=== PATIENT | female | born 1985 | race Asian ===

== ENCOUNTER 2017-10-07 07:20 | Inpatient (IN) | payer OTHER ==
[2017-10-07] MEDS ORDERED: 0.9 % SODIUM CHLORIDE 10 ML DISP.SYRIN. IV ×2 (08:15→11:00)
[2017-10-07] MEDS ORDERED: LIDOCAINE 1% PF 30 ML VIAL. INJ (08:15)
[2017-10-07] MEDS ORDERED: TERBUTALINE 1 MG/ML VIAL. SQ (08:15)
[2017-10-07 08:35] LABS: ADD MAN DIFF? NO
[2017-10-07 08:38] LABS: BASO % 0 % (0-3); EOS # 0.1 x10^3/uL (0.0-0.7); EOS % 1 % (0-3); HEMATOCRIT 36.6 % (36.0-47.0); LYMPH # 2.2 x10^3/uL (1.0-4.8); LYMPH % 27 % (24-48); MEAN CORPUSCULAR HEMOGLOBIN 27 pg (25-35); MEAN CORPUSCULAR HGB CONC 33 g/dL (31-37); MEAN CORPUSCULAR VOLUME 82 fL (79-100); MONO # 0.7 x10^3/uL (0.0-1.1); MONO % 9 % (0-9); NEUT # 5.1 x10^3uL (1.8-7.7); NEUT % 62 % (31-73); PLATELET COUNT 151 x10^3/uL (140-400); RED BLOOD COUNT 4.46 x10^6/uL (3.50-5.40); RED CELL DISTRIBUTION WIDTH 15.2 % (11.5-14.5); WHITE BLOOD COUNT 8.2 x10^3/uL (4.0-11.0)
[2017-10-07] MEDS: IV RINGERS,LACTATED 1000ML 1,000 ML IV ×2 (09:00→17:00)
[2017-10-07] MEDS: fentaNYL PF VIAL 100 MCG/2 ML VIAL IV ×3 (09:45→15:51)
[2017-10-07] MEDS: OXYTOCIN 30 UNIT/500 ML PREMIX 500 ML IV ×3 (09:46→15:42)
[2017-10-07] MEDS ORDERED: HYDROCORTISONE 1% TOPICAL OINTMENT 30GM TUBE. TP (11:00)
[2017-10-07] MEDS ORDERED: diphenhydrAMINE HCL 25 MG CAPSULE PO (11:00)
[2017-10-07] MEDS ORDERED: MMR per PROTOCOL. MC (11:00)
[2017-10-07] MEDS ORDERED: SIMETHICONE 80 MG TAB.CHEW PO (11:00)
[2017-10-07] MEDS ORDERED: MAG HYDROX/ALUMINUM HYD/SIMETH 30 ML ORAL.SUSP PO (11:00)
[2017-10-07] MEDS ORDERED: PHENYLEPH/MINERAL OIL/PETROLAT RECTAL OINTMENT 28GM TUBE. RC (11:00)
[2017-10-07] MEDS ORDERED: BENZOCAINE 20% TOPICAL AEROSOL SPRAY 57GM CAN. TP (11:00)
[2017-10-07] MEDS ORDERED: ZOLPIDEM 5 MG TABLET. PO (11:00)
[2017-10-07] MEDS ORDERED: MAGNESIUM HYDROXIDE 2,400 MG/30 ML ORAL.SUSP. PO (11:00)
[2017-10-07] MEDS ORDERED: ONDANSETRON PF 4 MG/2 ML VIAL. (11:01)
[2017-10-07] MEDS: IBUPROFEN 800 MG TABLET. PO ×2 (11:06→22:38)
[2017-10-07] MEDS: oxyCODONE/APAP 5/325 1 TAB TABLET PO (11:06)
[2017-10-07] MEDS ORDERED: miSOPROStol 200MCG TAB 200 MCG TABLET (15:56)
[2017-10-07 16:40] LABS: HEMATOCRIT 32.3 % (36.0-47.0)
[2017-10-07 16:40] LABS: HEMOGLOBIN 10.7 g/dL (12.0-15.5)
[2017-10-07] MEDS: miSOPROStol 200MCG TAB 200 MCG TABLET VG (16:52)
[2017-10-08] MEDS: IV RINGERS,LACTATED 1000ML 1,000 ML IV ×2 (01:00→09:00)
[2017-10-08 04:57] LABS: ADD MAN DIFF? NO
[2017-10-08 05:00] LABS: BASO # 0.1 x10^3/uL (0.0-0.2); BASO % 1 % (0-3); EOS # 0.1 x10^3/uL (0.0-0.7); EOS % 1 % (0-3); HEMATOCRIT 30.8 % (36.0-47.0); HEMOGLOBIN 10.3 g/dL (12.0-15.5); LYMPH # 2.3 x10^3/uL (1.0-4.8); LYMPH % 20 % (24-48); MEAN CORPUSCULAR HEMOGLOBIN 27 pg (25-35); MEAN CORPUSCULAR HGB CONC 34 g/dL (31-37); MEAN CORPUSCULAR VOLUME 81 fL (79-100); MONO # 1.3 x10^3/uL (0.0-1.1); MONO % 11 % (0-9); NEUT # 8.3 x10^3uL (1.8-7.7); NEUT % 69 % (31-73); PLATELET COUNT 127 x10^3/uL (140-400); RED BLOOD COUNT 3.82 x10^6/uL (3.50-5.40)
[2017-10-08] MEDS: FERROUS SULFATE 325 MG TABLET. PO ×2 (08:55→18:07)
[2017-10-08] MEDS: DOCUSATE SODIUM 100 MG CAPSULE. PO ×2 (08:55→20:47)
[2017-10-08] MEDS: ACETAMINOPHEN 325 MG TABLET. PO (15:15)
[2017-10-08] MEDS: IBUPROFEN 800 MG TABLET. PO (20:47)
[2017-10-09] MEDS: IBUPROFEN 800 MG TABLET. PO (08:57)
[2017-10-09] MEDS: DOCUSATE SODIUM 100 MG CAPSULE. PO (08:57)
== END 2017-10-09 13:20 | disposition home or self-care (01) | DRG 775 ==
LOC: 3 SO LND 07:20 → 3 NORTH 13:14
PROVIDERS: Specialist
PROC: 10E0XZZ Delivery of Products of Conception, External Approach (ICD-10-PCS; principal; 2017-10-07)
PROC: 0KQM0ZZ Repair Perineum Muscle, Open Approach (ICD-10-PCS; 2017-10-07)
DX: O70.1 Second degree perineal laceration during delivery (principal); Z37.0 Single live birth; Z3A.38 38 weeks gestation of pregnancy
CPT/HCPCS: 36415; 85014; 85018; 85025; 86592; 86850; 86900; 86901; J2590; J3010